=== PATIENT | female | born 1950 | race Caucasian/White ===

== ENCOUNTER 2016-11-21 12:55 | Observation (INO) | payer MEDICARE, OTHER ==
[~2016-11-21] VITALS: Ht 162.6 cm; Wt 63.7 kg
[2016-11-21] VITALS (10 sets, daily range): BP systolic 115–155; BP diastolic 68–96; PULSE 64–76; RESP 12–20; TEMP 95.8–97.9; O2SAT 95–98
--- NOTE | 2016-11-21 13:34 | PD ---
HPI Chief Complaint: GI Complaint Time Seen by Provider: 13:15 Travel History International Travel<30 days: No Contact w/Intl Traveler<30days: No Traveled to known affect area: No History of Present Illness HPI 66-year-old female complains of distally bruising and black tarry stool. Patient status post bovine aortic valve replacement and on Coumadin. Patient had INR done yesterday and was found to be 5.7. Patient states that she started noted some black tarry stool since last night. Patient states that she has some bruising on the lower extremity since yesterday also. Patient denies any headache. Patient denies any chest pain or shortness of breath. Patient denies abdominal pain. Patient denies dysuria or frequency. Patient denies any hematuria. PFSH Past Medical History Hx Anticoagulant Therapy: Yes Cardiovascular Problems: Yes (VALVE REPLACEMENT 3 MONTHS AGO) Social History Tobacco Use: No Allergies-Medications (Allergen,Severity, Reaction): Coded Allergies: No Known Allergies (Unverified , 11/21/16) Review of Systems General / Constitutional: No: Fever Eyes: No: Visual changes HENT: No: Headaches Cardiovascular: No: Chest Pain or Discomfort Respiratory: No: Shortness of Breath Gastrointestinal: Positive: Hematochezia, No: Abdominal Pain Genitourinary: No: Dysuria Musculoskeletal: No: Pain Skin: No Rash Neurologic: No: Weakness Psychiatric: No: Depression Endocrine: No: Polydipsia Hematologic/Lymphatic: No: Easy Bruising Physical Exam Narrative GENERAL: Well-nourished, well-developed patient. SKIN: Warm and dry. HEAD: Normocephalic. EYES: No scleral icterus. No injection or drainage. NECK: Supple, trachea midline. No JVD or lymphadenopathy. CARDIOVASCULAR: Regular rate and rhythm without murmurs, gallops, or rubs. RESPIRATORY: Breath sounds equal bilaterally. No accessory muscle use. GASTROINTESTINAL: Abdomen soft, non-tender, nondistended. Rectal exam Hemoccult positive. MUSCULOSKELETAL: No cyanosis, or edema. BACK: Nontender without obvious deformity. No CVA tenderness. Neurologic exam normal. Data Data Last Documented VS Vital Signs Date Time Temp Pulse Resp B/P Pulse Ox O2 Delivery O2 Flow Rate FiO2 11/21/16 15:30 64 16 140/72 96 Room Air 11/21/16 13:07 97.9 Orders Electrocardiogram (11/21/16 13:28) Complete Blood Count With Diff (11/21/16 13:28) Comprehensive Metabolic Panel (11/21/16 13:28) Prothrombin Time / Inr (Pt) (11/21/16 13:28) Act Partial Throm Time (Ptt) (11/21/16 13:28) Urinalysis - C+S If Indicated (11/21/16 13:28) Chest, Single Ap (11/21/16 13:28) Iv Access Insert/Monitor (11/21/16 13:28) Ecg Monitoring (11/21/16 13:28) Oximetry (11/21/16 13:28) Type And Screen (11/21/16 13:35) Urine Culture (11/21/16 13:15) Phytonadione (Mephyton) (11/21/16 14:45) Nitrofurantoin Monohyd Macrocr (Macrobid (11/21/16 14:45) Pantoprazole Inj (Protonix Inj) (11/22/16 09:00) Hgb & Hct (11/21/16 17:00) Hgb & Hct (11/21/16 23:00) Hgb & Hct (11/22/16 05:00) Hgb & Hct (11/22/16 11:00) Hgb & Hct (11/22/16 17:00) Hgb & Hct (11/22/16 23:00) Place In Observation (11/21/16 ) Vital Signs (Adult) Q4H (11/21/16 15:41) Activity Oob With Assistance (11/21/16 15:41) Sodium Chloride 0.9% Flush (Ns Flush) (11/21/16 15:45) Sodium Chloride 0.9% Flush (Ns Flush) (11/21/16 21:00) Ondansetron Inj (Zofran Inj) (11/21/16 15:45) Scd Bilateral/Knee High MAYELA.BID (11/21/16 15:41) Naloxone Inj (Narcan Inj) (11/21/16 15:45) Prothrombin Time / Inr (Pt) (11/22/16 06:00) Prothrombin Time / Inr (Pt) (11/23/16 06:00) Prothrombin Time / Inr (Pt) (11/24/16 06:00) Prothrombin Time / Inr (Pt) (11/25/16 06:00) Prothrombin Time / Inr (Pt) (11/26/16 06:00) Prothrombin Time / Inr (Pt) (11/27/16 06:00) Prothrombin Time / Inr (Pt) (11/28/16 06:00) Admit Order (Ed Use Only) (11/21/16 15:58) Npo After Midnight W/ Po Meds (11/21/16 Dinner) ^ Consent (11/21/16 16:01) Metoprolol Tartrate (Lopressor) (11/21/16 21:00) Labs Laboratory Tests Test 11/21/16 11/21/16 13:15 13:20 Urine Collection Type CLEAN CATCH Urine Color YELLOW Urine Turbidity CLEAR Urine pH 5.5 Urine Specific [place] 1.021 Urine Protein NEG mg/dL Urine Glucose (UA) NEG mg/dL Urine Ketones NEG mg/dL Urine Occult Blood LARGE Urine Nitrite NEG Urine Bilirubin NEG Urine Leukocyte Esterase SMALL Urine RBC 25-49 /hpf Urine WBC 15-19 /hpf Urine Squamous Epithelial 0-5 /hpf Cells Urine Bacteria FEW /hpf Microscopic Urinalysis Comment CULTURE INDICATED Urine Collection Time 13:15 White Blood Count 8.7 TH/MM3 Red Blood Count 4.06 MIL/MM3 Hemoglobin 11.0 GM/DL Hematocrit 34.0 % Mean Corpuscular Volume 83.7 FL Mean Corpuscular Hemoglobin 27.1 PG Mean Corpuscular Hemoglobin 32.4 % Concent Red Cell Distribution Width 14.4 % Platelet Count 338 TH/MM3 Mean Platelet Volume 7.8 FL Neutrophils (%) (Auto) 72.3 % Lymphocytes (%) (Auto) 18.1 % Monocytes (%) (Auto) 7.5 % Eosinophils (%) (Auto) 1.5 % Basophils (%) (Auto) 0.6 % Neutrophils # (Auto) 6.2 TH/MM3 Lymphocytes # (Auto) 1.6 TH/MM3 Monocytes # (Auto) 0.7 TH/MM3 Eosinophils # (Auto) 0.1 TH/MM3 Basophils # (Auto) 0.1 TH/MM3 CBC Comment DIFF FINAL Differential Comment Prothrombin Time 131.8 SEC Prothromb Time International 10.8 RATIO Ratio Activated Partial 53.4 SEC Thromboplast Time Sodium Level 143 MEQ/L Potassium Level 3.7 MEQ/L Chloride Level 111 MEQ/L Carbon Dioxide Level 21.5 MEQ/L Anion Gap 11 MEQ/L Blood Urea Nitrogen 21 MG/DL Creatinine 0.80 MG/DL Estimat Glomerular Filtration 72 ML/MIN Rate Random Glucose 126 MG/DL Calcium Level 8.2 MG/DL Total Bilirubin 0.2 MG/DL Aspartate Amino Transf 14 U/L (AST/SGOT) Alanine Aminotransferase 28 U/L (ALT/SGPT) Alkaline Phosphatase 81 U/L Total Protein 6.8 GM/DL Albumin 3.2 GM/DL Blood Type A POSITIVE Antibody Screen NEGATIVE Blood Bank Comment MDM Medical Decision Making Medical Screen Exam Complete: Yes Emergency Medical Condition: Yes Interpretation(s) 1457 PM. Last Impressions Chest X-Ray 11/21/16 1328 Signed Impressions: Service Date/Time: Monday, November 21, 2016 13:51 - CONCLUSION: 1. No acute findings. Postoperative median sternotomy. Elroy Paulino MD Differential Diagnosis Differential diagnosis including Coumadin toxicity, GI bleed, anemia. Narrative Course 66-year-old female with black tarry stool. Patient has elevated INR. Patient status post aortic valve replacement on Coumadin. Vitamin K 5 mg by mouth given. Macrobid 100 mg by mouth given. Diagnosis Primary Impression: GI bleed Qualified Code: K92.2 - Gastrointestinal hemorrhage, unspecified gastrointestinal hemorrhage type Additional Impression: Coumadin toxicity Qualified Code: T45.511A - Coumadin toxicity, accidental or unintentional, initial encounter Admitting Information Admitting Physician Requests: Observation Sachin Mckay MD Nov 21, 2016 13:34
[2016-11-21 13:44] LABS: BLOOD, URINE LARGE (NEG); GLUCOSE,URINE NEG (NEG); KETONE, URINE NEG (NEG); NITRITE,URINE NEG (NEG); PH, URINE 5.5 (5.0-8.5)
[2016-11-21 13:49] LABS: AUTOMATED NEUTROPHIL # 6.2 TH/MM3 (1.8-7.7); BASOPHIL # 0.1 TH/MM3 (0-0.2); BASOPHIL % 0.6 % (0.0-2.0); EOSINOPHIL # 0.1 TH/MM3 (0-0.4); EOSINOPHIL % 1.5 % (0.0-4.0); HEMO FLAGS DIFF FINAL; LYMPH % 18.1 % (9.0-44.0); LYMPHOCYTE # 1.6 TH/MM3 (1.0-4.8); MEAN CELL VOLUME 83.7 FL (80.0-100.0); MEAN CORPUSCULAR HEMOGLOBIN 27.1 PG (27.0-34.0); MEAN CORPUSCULAR HGB CONC 32.4 % (32.0-36.0); MONO % 7.5 % (0.0-8.0); NEUT % 72.3 % (16.0-70.0); PLATELET COUNT 338 TH/MM3 (150-450); RED BLOOD COUNT 4.06 MIL/MM3 (4.00-5.30); RED CELL DISTRIBUTION WIDTH 14.4 % (11.6-17.2); WHITE BLOOD COUNT 8.7 TH/MM3 (4.0-11.0)
[2016-11-21 13:59] LABS: CHLORIDE 111 MEQ/L (98-107); POTASSIUM 3.7 MEQ/L (3.5-5.1); SODIUM (NA) 143 MEQ/L (136-145)
[2016-11-21 14:02] LABS: METHOD OF COLLECTION CLEAN CATCH; URINE COLOR YELLOW (YELLW/STRAW); WBC, URINE 15-19 /hpf (0-5)
[2016-11-21 14:03] LABS: BACTERIA, URINE FEW /hpf; COMMENT (UR) CULTURE INDICATED; CULTURE IF INDICATED CULTURE INDICATED; SQUAMOUS EPITHELIAL CELL URINE 0-5 /hpf (0-5)
[2016-11-21 14:03] LABS: ANION GAP 11 MEQ/L (5-15); BICARBONATE 21.5 MEQ/L (21.0-32.0); BLOOD UREA NITROGEN 21 MG/DL (7-18)
[2016-11-21 14:06] LABS: ALT (GPT) 28 U/L (10-53); AST (GOT) 14 U/L (15-37); GLOMERULAR FILTRATION RATE 72 ML/MIN (>89)
[2016-11-21 14:07] LABS: TOTAL BILIRUBIN ADULT 0.2 MG/DL (0.2-1.0)
[2016-11-21 14:08] LABS: ALKALINE PHOSPHATASE 81 U/L (45-117)
[2016-11-21 14:29] LABS: APTT (PATIENT) 53.4 SEC (24.3-30.1); PROTHROMBIN TIME - PATIENT 131.8 SEC (9.8-11.6)
[2016-11-21 14:30] LABS: INTERNATIONAL NORMALIZED RATIO 10.8 RATIO
--- NOTE | 2016-11-21 14:34 | RADHPO ---
EXAM DATE/TIME: 11/21/2016 13:51 [facility] COMPARISON: No previous studies available for comparison. INDICATIONS : Short of breath MEDICAL HISTORY : None. SURGICAL HISTORY : CABG. ENCOUNTER: Initial ACUITY: 2 days PAIN SCORE: 0/10 LOCATION: Bilateral chest FINDINGS: A single view of the chest demonstrates the lungs to be symmetrically aerated without evidence of mas s, infiltrate or effusion. The cardiomediastinal contours are unremarkable. Osseous structures are intact. CONCLUSION: 1. No acute findings. Postoperative median sternotomy. Elroy Paulino MD on November 21, 2016 at 14:32 Board Certified Radiologist. This report was verified electronically.
[2016-11-21] MEDS ORDERED: NITROFURANTOIN MONOHYD MACROCR 100 MG CAP PO ONE (14:45)
[2016-11-21] MEDS ORDERED: PHYTONADIONE 5 MG TAB PO ONE (14:45)
[2016-11-21] MEDS ORDERED: NALOXONE HCL 0.4 MG/ML AMP IV PRN (15:45)
[2016-11-21] MEDS ORDERED: SODIUM CHLORIDE 0.9% FLUSH 5 ML FLUSH FLUSH PRN (15:45)
[2016-11-21] MEDS ORDERED: ONDANSETRON HCL 4 MG/2 ML VIAL IVP PRN (15:45)
--- NOTE | 2016-11-21 16:13 | HHI.HP ---
[facility] Service [place] [facility] Primary Care Physician Non-Staff Admission Diagnosis GI bleed. Coumadin toxicity. Diagnoses: (1) Coumadin toxicity (2) GI bleed Travel History International Travel<30 Days: No Contact w/Intl Traveler <30 Da: No Traveled to Known Affected Are: No History of Present Illness This is a pleasant [age] female who is status post bovine aortic valve replacement 3 months ago and he had some perioperative atrial fibrillation and has been on Coumadin for that. The patient's had the surgery done in [place] where she lives and has been down here for the past several days on vacation. Her primary care physician has had difficulty managing her INR levels and yesterday the patient had 2 black colored stools which were fully formed. She denied any dizziness or lightheadedness. No hematemesis. Her primary care physician urged her to come to the hospital. Her INR is 10 today. Her Hemoccult was positive in the emergency department. Hemoglobin is 11. She has received vitamin K. Review of Systems Constitutional: DENIES: Fever, Chills Eyes: DENIES: Diplopia Ears, nose, mouth, throat: DENIES: Throat pain, Epistaxis Respiratory: DENIES: Cough, Shortness of breath Cardiovascular: DENIES: Chest pain, Syncope Gastrointestinal: COMPLAINS OF: Black stools, DENIES: Abdominal pain, Bloody stools, Diarrhea, Nausea, Vomiting Genitourinary: DENIES: Urinary frequency, Hematuria Musculoskeletal: DENIES: Back pain, Neck pain Hematologic/lymphatic: DENIES: Lymphadenopathy Neurologic: DENIES: Abnormal gait, Headache Psychiatric: DENIES: Anxiety, Confusion Past Family Social History Past Medical History Aortic valve replacement 3 months ago Hypothyroidism Perioperative atrial fibrillation Reported Medications Need to be obtained. Allergies: Coded Allergies: No Known Allergies (Unverified , 11/21/16) Family History Reviewed and noncontributory Social History Does not drink or smoke Physical Exam Vital Signs Vital Signs Date Time Temp Pulse Resp B/P Pulse Ox O2 Delivery O2 Flow Rate FiO2 11/21/16 15:30 64 16 140/72 96 Room Air 11/21/16 14:30 66 16 125/68 95 Room Air 11/21/16 13:32 65 16 138/71 96 11/21/16 13:30 66 16 138/71 95 Room Air 11/21/16 13:07 97.9 76 15 115/68 96 Physical Exam GENERAL: Well-nourished, well-developed very pleasant well-developed well- nourished female patient who appears younger than her chronologic age. SKIN: Warm and dry. HEAD: Normocephalic. EYES: No scleral icterus. No injection or drainage. NECK: Supple, trachea midline. No JVD or lymphadenopathy. CARDIOVASCULAR: Regular rate and rhythm without murmurs, gallops, or rubs. RESPIRATORY: Breath sounds equal bilaterally. No accessory muscle use. GASTROINTESTINAL: Abdomen soft, non-tender, nondistended. EXTREMITIES: No cyanosis, or edema. NEUROLOGICAL: Awake, alert, and oriented x 3. Non-focal. Laboratory Laboratory Tests Test 11/21/16 11/21/16 13:15 13:20 Urine Collection Type CLEAN CATCH Urine Color YELLOW Urine Turbidity CLEAR Urine pH 5.5 Urine Specific [place] 1.021 Urine Protein NEG Urine Glucose (UA) NEG Urine Ketones NEG Urine Occult Blood LARGE Urine Nitrite NEG Urine Bilirubin NEG Urine Leukocyte Esterase SMALL Urine RBC 25-49 Urine WBC 15-19 Urine Squamous Epithelial 0-5 Cells Urine Bacteria FEW Microscopic Urinalysis Comment CULTURE INDICATED Urine Collection Time 13:15 White Blood Count 8.7 Red Blood Count 4.06 Hemoglobin 11.0 Hematocrit 34.0 Mean Corpuscular Volume 83.7 Mean Corpuscular Hemoglobin 27.1 Mean Corpuscular Hemoglobin 32.4 Concent Red Cell Distribution Width 14.4 Platelet Count 338 Mean Platelet Volume 7.8 Neutrophils (%) (Auto) 72.3 Lymphocytes (%) (Auto) 18.1 Monocytes (%) (Auto) 7.5 Eosinophils (%) (Auto) 1.5 Basophils (%) (Auto) 0.6 Neutrophils # (Auto) 6.2 Lymphocytes # (Auto) 1.6 Monocytes # (Auto) 0.7 Eosinophils # (Auto) 0.1 Basophils # (Auto) 0.1 CBC Comment DIFF FINAL Differential Comment Prothrombin Time 131.8 Prothromb Time International 10.8 Ratio Activated Partial 53.4 Thromboplast Time Sodium Level 143 Potassium Level 3.7 Chloride Level 111 Carbon Dioxide Level 21.5 Anion Gap 11 Blood Urea Nitrogen 21 Creatinine 0.80 Estimat Glomerular Filtration 72 Rate Random Glucose 126 Calcium Level 8.2 Total Bilirubin 0.2 Aspartate Amino Transf 14 (AST/SGOT) Alanine Aminotransferase 28 (ALT/SGPT) Alkaline Phosphatase 81 Total Protein 6.8 Albumin 3.2 Blood Type A POSITIVE Antibody Screen NEGATIVE Blood Bank Comment Date/Time Procedure Status Source Growth 11/21/16 13:15 Urine Culture Received Urine Clean Catch Pending Result Diagram: 11/21/16 1320 11/21/16 1320 Assessment and Plan Assessment and Plan -Supratherapeutic INR. Status post vitamin K in the emergency department and will repeat INR in the morning. -Positive guaiac in the emergency department. Hemoglobin is 11 and the patient states it is normally 14. We will trend her H&H overnight. At this time she has no active bleeding. She had 2 black stools which are poorly formed yesterday. GIs been consult that I discussed her care with Dr. Manjula Pena. If no active bleeding and hemoglobin stable we'll not plan for colonoscopy at this time. -Paroxysmal atrial fibrillation. The patient is on metoprolol but does not know the dose. Will put her on metoprolol 25 mg twice a day. Hold Coumadin at this time due to the above. -Hypothyroidism. Dose of Synthroid needs to be ascertained. -DVT prophylaxis with SCDs. Problem Qualifiers (1) Coumadin toxicity: Qualified Code: T45.511A - Coumadin toxicity, accidental or unintentional, initial encounter (2) GI bleed: Qualified Code: K92.2 - Gastrointestinal hemorrhage, unspecified gastrointestinal hemorrhage type Verito Guo MD Nov 21, 2016 16:13
--- NOTE | 2016-11-21 16:26 | MB ---
cc: PAULINA BROWN MD, HASSAN M.D. DOAN, HUNG M.D. DATE OF CONSULTATION: 11/21/2016 REASON FOR CONSULTATION: Anemia and melena. HISTORY OF PRESENT ILLNESS: Ms. Almonte is a 66 year-old lady who had aortic valve replacement done recently, came in with Coumadin toxicity and complaining of melena and was found to also have anemia. Apparently her baseline hemoglobin is around 14. She was admitted with a hemoglobin of 11. INR is 10.8. She is not having any abdominal pain. There is no hematemesis or hematochezia. No rashes and no icterus. PAST MEDICAL HISTORY: Aortic valve replacement three months ago, otherwise none given. ALLERGIES: Not documented. PHYSICAL EXAMINATION: Reveals a well-nourished lady in no apparent distress. VITAL SIGNS: Stable. HEAD AND NECK: Anicteric sclera. CHEST: Bilateral air entry with rales. ABDOMEN: Soft, nontender. No hepatosplenomegaly. Bowel sounds are present. MANAGER FINANCIAL REPORTING: Nonfocal. RECTAL: Deferred. SOCIAL HISTORY: No tobacco, no alcohol reported. LABORATORY DATA: Reveal hemoglobin of 11, INR 10.8, creatinine 0.80, liver function tests are normal. IMPRESSION: Coumadin toxicity, melena, anemia. RECOMMENDATIONS: Coumadin needs to be reversed. This protocol has been initiated by the emergency room. Continue to monitor labs and INR. Clear liquid diet today, n.p.o. after midnight, tentatively planned for EGD tomorrow, depending on patient's clinical course. This has been discussed with Dr. Mckay and with Dr. Brown. Will follow with you. Thank you for the referral. MD FELIPE Sidhu/ARIEL /4:06 PM /4:15 PM
--- NOTE | 2016-11-21 16:54 | EKG ---
Date Performed: 11/21/2016 Time Performed: 13:32:06 PTAGE: 66 years EKG: Sinus rhythm Anterolateral T wave changes are nonspecific Borderline ECG NO PREVIOUS TRACING DOCTOR: Emanuel Moreno Interpretating Date/Time 11/21/2016 16:52:47
[2016-11-21 17:10] LABS: HEMATOCRIT 32.1 % (35.0-46.0); REVIEW FLAG FINAL
[2016-11-21] MEDS ORDERED: ROSU5 PO (17:33)
[2016-11-21] MEDS ORDERED: WARF4TAB51 PO (17:42)
[2016-11-21] MEDS ORDERED: ASPI81CH CHEW (17:42)
[2016-11-21] MEDS ORDERED: TIRO100C PO (17:42)
[2016-11-21] MEDS ORDERED: METO25TA3 PO (17:42)
[2016-11-21] MEDS: SODIUM CHLORIDE 0.9% FLUSH 5 ML FLUSH FLUSH SCH (20:01)
[2016-11-21] MEDS: METOPROLOL TARTRATE 25 MG TAB PO SCH (20:01)
[2016-11-21 22:52] LABS: HEMATOCRIT 31.9 % (35.0-46.0); REVIEW FLAG FINAL
[2016-11-22] VITALS: BP 132/67; PULSE 63; RESP 20; TEMP 97.9; O2SAT 95
[2016-11-22 04:00] VITALS: BP 133/73; PULSE 64; RESP 20; TEMP 97.5; O2SAT 94
[2016-11-22 06:09] LABS: HEMATOCRIT 32.4 % (35.0-46.0); REVIEW FLAG FINAL
[2016-11-22 06:33] LABS: PROTHROMBIN TIME - PATIENT 85.9 SEC (9.8-11.6)
[2016-11-22 06:37] LABS: INTERNATIONAL NORMALIZED RATIO 7.1 RATIO
[2016-11-22] MEDS: METOPROLOL TARTRATE 25 MG TAB PO SCH (08:30)
[2016-11-22] MEDS: SODIUM CHLORIDE 0.9% FLUSH 5 ML FLUSH FLUSH SCH (08:33)
[2016-11-22] MEDS ORDERED: PANTOPRAZOLE SODIUM 40 MG VIAL IV SCH (09:00)
[2016-11-22 09:02] VITALS: BP 142/76; PULSE 67; RESP 16; TEMP 97.8; O2SAT 94
[2016-11-22 12:01] LABS: REVIEW FLAG FINAL
[2016-11-22 14:04] VITALS: BP 120/74; PULSE 64; RESP 15; TEMP 97.7; O2SAT 95
[2016-11-22] MEDS ORDERED: PHYTONADIONE 5 MG TAB PO ONE (14:45)
[2016-11-22] MEDS ORDERED: XARE20TA PO (15:00)
[2016-11-22 15:01] LABS: INTERNATIONAL NORMALIZED RATIO 4.6 RATIO; PROTHROMBIN TIME - PATIENT 54.5 SEC (9.8-11.6)
--- NOTE | 2016-11-22 15:29 | HHI.PR ---
Subjective Remarks No further black colored stools. No bleeding. Hb stable. Patient denies complaints feels "perky" today. Objective Vitals Vital Signs Date Time Temp Pulse Resp B/P Pulse Ox O2 Delivery O2 Flow Rate FiO2 11/22/16 14:04 97.7 64 15 120/74 95 11/22/16 09:02 97.8 67 16 142/76 94 11/22/16 04:00 97.5 64 20 133/73 94 11/22/16 00:00 97.9 63 20 132/67 95 11/21/16 20:03 74 11/21/16 20:00 95.8 72 20 155/87 95 11/21/16 18:17 97.2 68 18 148/96 97 11/21/16 17:44 78 148/76 98 11/21/16 17:05 66 12 149/69 98 11/21/16 15:30 64 16 140/72 96 Room Air I/O 11/21/16 11/21/16 11/21/16 11/22/16 11/22/16 11/22/16 07:00 15:00 23:00 07:00 15:00 23:00 Intake Total 0 ml 600 ml Balance 0 ml 600 ml Intake Oral 600 ml IV Total 0 ml 0 ml # Voids 4 # Bowel Movements 0 Result Diagram: 11/22/16 1150 11/21/16 1320 Objective Remarks GENERAL: Well-nourished, well-developed pleasant CF patient appears younger than chronologic age, in NAD. SKIN: Warm and dry. HEAD: Normocephalic. EYES: No scleral icterus. No injection or drainage. NECK: Supple, trachea midline. No JVD or lymphadenopathy. CARDIOVASCULAR: Regular rate and rhythm without murmurs, gallops, or rubs. RESPIRATORY: Breath sounds equal bilaterally. No accessory muscle use. GASTROINTESTINAL: Abdomen soft, non-tender, nondistended. EXTREMITIES: No cyanosis, or edema. NEUROLOGICAL: Awake, alert, and oriented x 3. Non-focal. A/P Problem List: (1) Coumadin toxicity ICD Code: T45.511A Status: Acute (2) GI bleed ICD Code: K92.2 Status: Resolved Assessment and Plan -Supratherapeutic INR. Status post vitamin K in the emergency department. INR 7 this morning. -Positive guaiac in the emergency department. No signs of active bleeding. Hemoglobin has stayed stable at 11 overnight ( patient states it is normally 14) . D/w GI Dr. Christianson no plans for colonoscopy in hospital. Discussed with her shoulder sawyer Dr. Gregg in [place], [place] - pt no longer requires coumadin for the aortic valve as it has been three months, patient may be transitioned to xarelto once INR<[address]. [address] Caceres (who is covering for patient's PCP) - he agrees to follow INR until less than 3 at which point patient may start xarelto. Patient instructed to call PCP's office tomorrow for INR results. Discussed in detail with patient and who understand followup plans. Will repeat Vit K5 mg PO x1 now. Patient understands if bleeding to return to hospital. DC home in stable condition. [facility] for PT /INR, call Dr. Caceres's office for results. R/t ED if bleeding. Xarelto rx and 30 day coupon provided to patient. Problem Qualifiers (1) Coumadin toxicity: Qualified Code: T45.511A - Coumadin toxicity, accidental or unintentional, initial encounter (2) GI bleed: Qualified Code: K92.2 - Gastrointestinal hemorrhage, unspecified gastrointestinal hemorrhage type Verito Guo MD Nov 22, 2016 15:29
[2016-11-22] MEDS ORDERED: AMOX500C PO (17:23)
== END 2016-11-22 17:38 | disposition home or self-care (01) ==
LOC: PHED 12:55 → PHEDA 15:59 → PH3B 18:00
PROVIDERS: ADMIT Family Medicine; ATTEND Family Medicine
DX: T45.511A Poisoning by anticoagulants, accidental (unintentional), initial encounter (principal); K92.2 Gastrointestinal hemorrhage, unspecified; D64.9 Anemia, unspecified; N39.0 Urinary tract infection, site not specified; B96.20 Unspecified Escherichia coli [E. coli] as the cause of diseases classified elsewhere; I48.0 Paroxysmal atrial fibrillation; E03.9 Hypothyroidism, unspecified; Z79.01 Long term (current) use of anticoagulants; Z95.1 Presence of aortocoronary bypass graft; Z95.2 Presence of prosthetic heart valve; Z95.3 Presence of xenogenic heart valve
CPT/HCPCS: 71010; 80053; 81001; 85014; 85018; 85025; 85610; 85730; 86850; 86900; 86901; 87077; 87086; 87186; 93005; 99285; G0378